=== PATIENT | male | born 2000 | race Caucasian/White ===

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

== ENCOUNTER 2019-01-06 12:25 | Emergency (ER) | payer OTHER ==
--- NOTE | 2019-01-06 12:52 | EDPHY ---
H & P Stated Complaint: appy monday last night this am dizzyness/anxious bradycardia chest heavines Time Seen by Provider: 01/06/19 12:52 HPI/ROS: CHIEF COMPLAINT: Anxious,"I can feel my heart beating" HISTORY OF PRESENT ILLNESS: The patient is status post appendectomy on Monday which was uncomplicated. He went home the same day. The patient was sleeping last night reportedly was having a difficult time sleeping and is noted that he could feel his pulse in his neck. His heart rate was 50-60 which is not unusual. The patient stated the symptoms precipitated some anxiety and he was concerned which prompted his visit to the emergency department today. The patient denies any acute abdominal pain. He has been eating drinking and having normal bowel movements. The patient denies any pleuritic chest pain, asymmetric calf pain or swelling. He denies any positional chest pain. REVIEW OF SYSTEMS: A comprehensive 10 point review of systems is otherwise negative aside from elements mentioned in the history of present illness. Source: Patient Exam Limitations: No limitations - Personal History Current Tetanus Diphtheria and Acellular Pertussis (TDAP): Yes - Medical/Surgical History Hx Asthma: No Hx Chronic Respiratory Disease: No Hx Diabetes: No Hx Cardiac Disease: No Hx Renal Disease: No Hx Cirrhosis: No Hx Alcoholism: No Hx HIV/AIDS: No Hx Splenectomy or Spleen Trauma: No Other PMH: appy - Social History Smoking Status: Never smoked - Physical Exam Exam: General Appearance: Alert, no distress Eyes: Pupils equal and round no pallor or injection ENT, Mouth: Mucous membranes moist Respiratory: There are no retractions, lungs are clear to auscultation Cardiovascular: Regular rate and rhythm Gastrointestinal: Abdomen is soft and nontender, no masses, bowel sounds normal Neurological: A&O, normal motor function, normal sensory exam, normal cranial nerves Skin: Warm and dry, no rashes Musculoskeletal: Neck is supple nontender Extremities: symmetrical, full range of motion Psychiatric: Patient is oriented X 3, there is no agitation Constitutional: Initial Vital Signs Temperature (C) 37.2 C 01/06/19 12:31 Heart Rate 73 01/06/19 12:31 Respiratory Rate 18 01/06/19 12:31 Blood Pressure 123/70 H 01/06/19 12:31 O2 Sat (%) 97 01/06/19 12:31 O2 Delivery Mode Room Air Allergies/Adverse Reactions: No Known Allergies Allergy (Verified 01/06/19 12:30) Home Medications: Medication Instructions Recorded Cogswell 5-325 Tablet 01/06/19 Medical Decision Making - Diagnostics EKG Interpretation: EKG: Complete interpretation has been separately recorded in the [email or web address] archive. Summary impression: Sinus rhythm, diffuse ST segment elevation consistent with early repolarization. ED Course/Re-evaluation: The patient is nontoxic and well-appearing presents to the ED with a sensation of a heart beating in his neck heavily over the past night. I do believe the patient likely is having primarily anxiety mediated symptoms likely secondary to possible atelectasis. The patient's EKG demonstrates no evidence of a significant arrhythmia. The patient had an IV established. He received a L of normal saline. Differential Diagnosis: Differential diagnosis considered includes arrhythmia, dehydration, anxiety, atelectasis - Data Points Laboratory Results: Laboratory Results 01/06/19 13:22 01/06/19 13:22 01/06/19 01/06/19 13:22 13:22 WBC 8.28 10^3/uL 10^3/uL (3.80-9.50) RBC 4.91 10^6/uL 10^6/uL (4.40-6.38) Hgb 14.6 g/dL g/dL (13.7-17.5) Hct 42.8 % % (40.0-51.0) MCV 87.2 fL fL (81.5-99.8) MCH 29.7 pg pg (27.9-34.1) MCHC 34.1 g/dL g/dL (32.4-36.7) RDW 13.2 % % (11.5-15.2) Plt Count 191 10^3/uL 10^3/uL (150-400) MPV 10.7 fL fL (8.7-11.7) Neut % (Auto) 72.1 % % (39.3-74.2) Lymph % (Auto) 16.9 % % (15.0-45.0) [place] % (Auto) 9.9 % % (4.5-13.0) Eos % (Auto) 0.6 % % (0.6-7.6) Baso % (Auto) 0.4 % % (0.3-1.7) Nucleat RBC Rel Count 0.0 % % (0.0-0.2) Absolute Neuts (auto) 5.97 10^3/uL 10^3/uL (1.70-6.50) Absolute Lymphs (auto) 1.40 10^3/uL 10^3/uL (1.00-3.00) Absolute Monos (auto) 0.82 10^3/uL H 10^3/uL (0.30-0.80) Absolute Eos (auto) 0.05 10^3/uL 10^3/uL (0.03-0.40) Absolute Basos (auto) 0.03 10^3/uL 10^3/uL (0.02-0.10) Absolute Nucleated RBC 0.00 10^3/uL 10^3/uL (0-0.01) Immature Gran % 0.1 % % (0.0-1.1) Immature Gran # 0.01 10^3/uL 10^3/uL (0.00-0.10) Sodium 140 mEq/L mEq/L (135-145) Potassium 4.0 mEq/L mEq/L (3.5-5.2) Chloride 105 mEq/L mEq/L (97-110) Carbon Dioxide 27 mEq/l mEq/l (22-31) Anion Gap 8 mEq/L mEq/L (6-14) BUN 11 mg/dL mg/dL (7-23) Creatinine 0.8 mg/dL mg/dL (0.7-1.3) Estimated GFR > 60 Glucose 77 mg/dL mg/dL (70-100) Calcium 9.5 mg/dL mg/dL (8.5-10.4) Medications Given: Discontinued Medications Sodium Chloride (Ns) 1,000 mls @ 0 mls/hr IV EDNOW ONE; Wide Open PRN Reason: Protocol Stop: 01/06/19 13:15 Last Admin: 01/06/19 13:29 Dose: 1,000 mls Departure - Departure Disposition: Home, Routine, Self-Care Clinical Impression: Palpitations Condition: Good Instructions: Heart Palpitations (ED) Additional Instructions: 1. Please return to the ED for markedly worsening symptoms. 2. The laboratory testing EKG performed in the emergency department today are normal. 3. Follow up with your primary care provider as needed. 4. Please try to increase your fluid intake.
--- NOTE | 2019-01-06 13:00 | CPEKG ---
Test Reason : OPEN Blood Pressure : / mmHG Vent. Rate : 057 BPM Atrial Rate : 056 BPM P-R Int : 146 ms QRS Dur : 098 ms QT Int : 414 ms P-R-T Axes : 048 044 032 degrees QTc Int : [address] elev, probable normal early repol pattern Confirmed by Rigo Mckeon ([id number]) on 01/06/2019 12:59:36 PM Referred By: PHYSICIAN ED Confirmed By:Rigo Mckeon
[2019-01-06] MEDS ORDERED: NS 1,000 ML IV ONE (13:14)
[2019-01-06 13:34] LABS: PLATELET COUNT 191 10^3/uL (150-400)
[2019-01-06 14:23] VITALS: BP 131/82
== END 2019-01-06 14:41 | disposition home or self-care (01) ==
DX: R00.2 Palpitations (principal); E86.9 Volume depletion, unspecified; Z90.89 Acquired absence of other organs